=== PATIENT | female | born 1990 | race Caucasian/White ===

== ENCOUNTER 2020-06-28 09:46 | Outpatient (REF) | payer OTHER, SELFPAY ==
--- NOTE | 2020-06-28 09:00 | PAPFT_PTH ---
PATIENT: RUDDY MENENDEZ LOC: [facility][id number] AGE/SX: 30/F ROOM: RE06/28/[address]: Lilliana Rivera : 1990 BED: DIS: 06/28/2020 SPEC #: [id number] RECD: 06/28/20 18:29 STATUS: OSBALDO REJustine #: [id number] ALEXEY: 06/28/20 09:[address]: Lilliana Rivera DEPT: [facility] Cytology RECD BY: Abbey Son ENTERED: 06/28/20 18:29 SP TYPE: PAPFT OTHR DR: Massimo Parker Tissues: 1 - CX/ENDOCX FOR PAP SMEARS Procedures: PAP THIN PREP/[facility] Screening HPV DNA PROBE Comments: [id number]
== END 2020-06-28 10:06 ==
LOC: NCHCN 09:46
PROVIDERS: PCP Internal Medicine; Visit Provider Nurse Practitioner Family
DX: Z12.4 Encounter for screening for malignant neoplasm of cervix (principal); Z01.419 Encounter for gynecological examination (general) (routine) without abnormal findings; Z11.51 Encounter for screening for human papillomavirus (HPV)
CPT/HCPCS: 88142; 87624

== ENCOUNTER 2020-06-29 08:30 | Outpatient (REF) | payer OTHER, SELFPAY ==
[2020-06-29 20:46] LABS: Calculated LDL 84 mg/dL (<100); Cholesterol 160 mg/dL (<200); Glucose 96 mg/dL (74-106); HDL Cholesterol 68 mg/dL (40-60); Triglyceride 40 mg/dL (<150)
== END 2020-06-29 08:50 ==
LOC: NCHCN 08:30
PROVIDERS: PCP Internal Medicine; Visit Provider Nurse Practitioner Family
DX: Z00.00 Encounter for general adult medical examination without abnormal findings (principal); Z13.1 Encounter for screening for diabetes mellitus; Z13.220 Encounter for screening for lipoid disorders
CPT/HCPCS: 80061; 82947